=== PATIENT | male | born 1935 | race African-American/Black ===

== ENCOUNTER 2016-06-11 07:31 | Inpatient (IN) | payer MEDICARE ==
--- NOTE | ~2016-06-11 | DS ---
Discharge Summary [facility] [address] [place]. [address] NAME: VANESSA NUÑEZ : 36 STATUS : ADM IN PAT#: [id number] AGE: 80 ADM/REG DATE : 06/11/16 MR#: [id number] REPORT SERV DATE: 06/15/16 DICTATED BY: CARMEN BLACKWELL DATE: 06/14/16 REPORT STATUS : Draft TRANSCRIBED BY: STELLA DATE: 06/14/16 ADMISSION DATE: 06/11/2016 DISCHARGE DATE: ADDENDUM: After planning for the patient to be discharged home, the had a concern that the patient needed maximal assist to help. It is unclear to me as of why the patient became so deconditioned since he has been only here for two or three days to the point where he needs maximal assist. I suspect that he was not ambulating prior to hospitalization. Now, the is demanding that he go to a rehab facility, so we are canceling the discharge and having Physical Therapy evaluate the patient and potentially placing him in a facility. However, if the patient declines rehab facility, then he will be discharged home. Interestingly enough, the patient's did not express any concerns yesterday when I told the patient and his that he will be discharged home on Tuesday. JACK/STELLA Carmen Blackwell MD / [id number] CC: MD Tim Veloz M.D.
--- NOTE | ~2016-06-11 | HP ---
History And Physical [place] [id number] [facility] [place]. [address] NAME: VANESSA NUÑEZ : 36 STATUS : ADM IN [facility]#: [id number] AGE: 80 ADM/REG DATE : 06/11/16 MR#: [id number] REPORT SERV DATE: 06/11/16 DICTATED BY: MACRINA HENDRICKS DATE: 06/11/16 REPORT STATUS : Draft TRANSCRIBED BY: MODL DATE: 06/11/16 DATE OF ADMISSION: 06/11/2016 CHIEF COMPLAINT: Chills. HISTORY OF PRESENT ILLNESS: The patient is a very pleasant 80-year-old male who was just in the hospital from 05/14/2016 to 05/20/2016 with what sounds like MSSA urinary tract infection and urinary retention requiring a Bird catheter for which he was discharged with plans to follow up with Dr. Nevarez. He did well for a bit and then on Tuesday, his noted that he was feeling poorly. He was seen in the Emergency Department at [facility] on 06/08/2016, at that time, his Bird catheter was changed and he was placed on some Bactrim for a presumed urinary tract infection. He went home. Over the last 36 hours, his reports he has had no urine output and he has had shaking chills. She did not measure his temperature. He really does not provide much of the history, she provides most of it. She did not take his temperature, but she felt like he was ill, he was weak, he actually fell in the shower yesterday. He did not suffer any injuries but he was so weak he could not get up off the shower floor and had to have a neighbor help him today. Finally she called the EMS when he was so weak, he could not stand. PAST MEDICAL HISTORY: 1. Recent MSSA urinary tract infection with urinary retention and a Bird catheter placement. 2. Klebsiella UTI diagnosed on June 08 with Bird catheter change. 3. Parkinson's. 4. Peripheral neuropathy. 5. Ataxia. 6. BPH. 7. Erectile dysfunction. Penile implant. 8. Hypertension. 9. Previous stroke. 10.Thyroid nodule. 11.Debility. PAST SURGICAL HISTORY: He has had a 1. Right inguinal hernia repair. 2. Penile implant. 3. Cholecystectomy. SOCIAL HISTORY: He does not use any drugs or alcohol or tobacco. He is . He uses a cane and a walker at home. ALLERGIES: NO KNOWN DRUG ALLERGIES. FAMILY HISTORY: Positive for possible depression. HOME MEDICATIONS: Reviewed and attached. History And Physical [address] [place]. [address] NAME: VANESSA NUÑEZ : 36 STATUS : ADM IN PAT#: [id number] AGE: 80 ADM/REG DATE : 06/11/16 MR#: [id number] REPORT SERV DATE: 06/11/16 DICTATED BY: MACRINA HENDRICKS DATE: 06/11/16 REPORT STATUS : Draft TRANSCRIBED BY: STELLA DATE: 06/11/16 REVIEW OF SYSTEMS: Full 10-point review of systems obtained. Pertinent positives already mentioned in the HPI. PHYSICAL EXAMINATION: VITAL SIGNS: Blood pressure upon my arrival was in the 80s over 40s, sats were 95%, temperature was 100.5, and pulse is 100. GENERAL: Ill-appearing male. HEENT: Normocephalic, atraumatic. He does have this chronic right-sided hyperpigmentation of his right eye which his states he has had since . His throat is clear. NECK: Supple. HEART: Tachycardic. LUNGS: Grossly clear but diminished at the bases. ABDOMEN: Soft, nontender, nondistended. EXTREMITIES: Warm and dry. Skin is intact. Pulses are 2+ at the feet. NEUROLOGIC: He is alert. He is oriented to person, place, and time. Mood and affect are appropriate. He moves all four extremities appropriately. LAB AND X-RAY STUDIES: Culture, urine culture from 06/09/2016 shows Klebsiella which is israel- sensitive. 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 Comprehensive metabolic panel: Sodium 138, potassium 3.7, chloride 103, CO2 of 22, BUN and creatinine 37 and 1.53. Glucose 100. LFTs are normal other than an AST which is 67. Lipase is normal. Troponin is 0.02. Lactate is 1.9. Chest x-ray is negative. Flu swab is negative. CBC: White count is 22, H and H 11 and 34, and platelets are 338. Urinalysis shows 140 whites, 39 red cells, many bacteria, large leukocyte esterase. ASSESSMENT/PLAN: 1. Sepsis secondary to urinary tract infection, exacerbated by urinary obstruction. Apparently his Bird catheter was not quite in the bladder, this was advanced, and he had drainage of about 600 mL of urine and then he started to have blood from his bladder. He has evidence also of mild acute kidney injury. I would like to treat his ongoing sepsis urinary tract infection aggressively. I have given him a 2 L bolus here in the ER. I am going to watch him down here to see if I can get his pressure above 100 with just simple fluids. I will place him empirically on Levaquin and vancomycin. I have pancultured him. We will do another lactic acid about 2 hours. We will check a procalcitonin. We will treat his sepsis aggressively. Should he stabilize and be appropriate for a tele bed, we will move him to a tele bed, otherwise he is awaiting an IMCU bed. 2. Acute kidney injury likely secondary to urinary retention. I have placed a 3-way Bird and we are irrigating his bladder currently and appears to be draining nicely. Hopefully with resolution of this obstruction, his kidney function will improve and hopefully also with the treatment of his urinary tract infection, his kidney function will improve. He is also at risk for ATN given the fact that he has been hypotensive History And Physical [address] [address] NAME: VANESSA NUÑEZ : 36 STATUS : ADM IN [facility]#: [id number] AGE: 80 ADM/REG DATE : 06/11/16 MR#: [id number] REPORT SERV DATE: 06/11/16 DICTATED BY: MACRINA HENDRICKS DATE: 06/11/16 REPORT STATUS : Draft TRANSCRIBED BY: MODL DATE: 06/11/16 in the ER. We are aggressively resuscitating him and correct any underlying cause of his sepsis. 3. Urinary retention now with chronic indwelling Bird. He will need to follow up with Urology as an outpatient. Please see #1 and 2 for details. 4. History of Parkinson's. Continue Sinemet. 5. Peripheral neuropathy. 6. History of ataxia. Will need a walker or cane. We will place him on fall risk precautions. 7. Thyroid nodule aspirated last hospital stay. Unable to pull up the path report in the ER. This will need to be followed up by the inpatient hospitalist tomorrow on rounds. 8. Deep venous thrombosis prophylaxis; given the amount of hematuria he is having in the ER, would hold off today but could likely restart tomorrow if his urine clears. 9. Disposition pending above aforementioned plan and workup. DANII/STELLA Macrina Hendricks M.D. / [id number] CC: Linda Parker M.D. Marty Scheinberg, M.D.
--- NOTE | ~2016-06-11 | DS ---
Discharge Summary [facility] [address] [place]. [address] NAME: VANESSA NUÑEZ : 37 STATUS : ADM IN [facility]#: [id number] AGE: 80 ADM/REG DATE : 06/11/16 MR#: [id number] REPORT SERV DATE: 06/15/16 DICTATED BY: CARMEN DE LOS SANTOS DATE: 06/14/16 REPORT STATUS : Draft TRANSCRIBED BY: MODL DATE: 06/14/16 ADMISSION DATE: 06/11/2016 DISCHARGE DATE: 06/14/2016 REASON FOR ADMISSION: Sepsis secondary to urinary tract infection and urinary retention, and management of urinary retention. HISTORY OF PRESENT ILLNESS: Please refer Dr. Cristela Hendricks' history and physical dated 06/11/2016 for complete details regarding the patient admission. In brief, the patient was admitted to the Hospitalist Service for management of his sepsis secondary to UTI exacerbated by urinary obstruction. HOSPITAL COURSE: The patient had an uncomplicated hospital course. He presented with a white blood cell count of 22,000. A Bird catheter was placed in the ER and had about 600 mL of urinary retention. He was mildly hypotensive in the ER, and was given 2 L of bolus with his blood pressure rising as expected. He also had acute kidney injury secondary to urinary retention and infection, which is now resolved by the day of discharge. He was started on broad-spectrum antibiotics. Urine culture came back positive for Klebsiella pneumonia that was israel susceptible. He was then switched over to Ceftin on the day of discharge. The patient has reached maximal hospitalization. His acute kidney injury has resolved. His white blood cell count has trended towards normal. He will be discharged home with the Bird catheter to follow up with Dr. Nevarez as scheduled to do a voiding trial. DISCHARGE DIAGNOSES: Sepsis secondary to Klebsiella pneumoniae urinary tract infection present on admission; acute kidney injury secondary to urinary retention and infection, now resolved; urinary obstruction, now resolved with Bird catheter in place; Parkinson's, stable on Sinemet; peripheral neuropathy; benign thyroid nodule; and constipation. PROCEDURES: Include CT scan of the abdomen and pelvis. DISCHARGE MEDICATIONS: Include alfuzosin 10 mg at bedtime, Sinemet 25/100 mg one tablet four times a day, Avodart 0.5 mg daily, Flonase daily, Exelon Patch daily, sertraline 25 mg daily, Flomax 0.4 mg daily, carvedilol 3.125 mg twice a day, aspirin 81 mg daily, Ultram p.r.n., and Ceftin 500 mg twice a day for five more days. JACK/STELLA Carmen De Los Santos MD / [id number] CC: Discharge Summary [address] [address] NAME: VANESSA NUÑEZ : 36 STATUS : ADM IN PAT#: [id number] AGE: 80 ADM/REG DATE : 06/11/16 MR#: [id number] REPORT SERV DATE: 06/15/16 DICTATED BY: CARMEN DE LOS SANTOS DATE: 06/14/16 REPORT STATUS : Draft TRANSCRIBED BY: MODL DATE: 06/14/16 MD Tim Veloz M.D. Marty Scheinberg, M.D.
--- NOTE | ~2016-06-11 | DS ---
Discharge Summary [facility] [address] [facility] [place]. [address] NAME: VANESSA NUÑEZ : 37 STATUS : DIS IN PAT#: [id number] AGE: 80 ADM/REG DATE : 06/11/16 MR#: [id number] REPORT SERV DATE: 06/17/16 DICTATED BY: ANNA MARIE LAWRENCE DATE: 06/16/16 REPORT STATUS : Draft TRANSCRIBED BY: MODL DATE: 06/16/16 ADMISSION DATE: 06/11/2016 DISCHARGE DATE: 06/16/2016 DISCHARGE DIAGNOSES: 1. Urinary tract infection and sepsis, improved. 2. Urinary tract infection with Klebsiella. The patient will finish Levaquin, two more days. 3. Misplaced Bird catheter, corrected. 4. Acute kidney injury, completely resolved. HISTORY OF PRESENT ILLNESS: This is a 80-year-old -Finnish male patient, who had a recent hospitalization here about a month ago. He had to come back to the hospital after his Bird catheter was changed prior to this admission from the emergency room and developed a chill and fever. Please see dictated H and P. HOSPITAL COURSE: The patient was admitted to the hospital with UTI and sepsis, was treated with empirical antibiotics and improved. His urine culture came back positive with Klebsiella, which was pansensitive to all the antibiotics that he was treated. Finally, his antibiotic was narrowed down to Levaquin once a day. Along with this urinary tract infection, he was showing acute kidney injury, which is completely resolved after the treatment. Overall, he had improvement significantly. Initially, his discharge was made to home, but later, his physical strength was not strong enough to go back home. He just finished rehab from [facility]. [facility] declined his readmission on this admission. Medically, he is stable enough to be discharged from the hospital at this point, waiting for the rehab arrangement. DISCHARGE MEDICATIONS: 1. Uroxatral 10 mg once at bedtime. 2. Continue Sinemet 25/100 mg four times a day. 3. Coreg 3.125 mg twice a day. 4. Avodart 0.5 mg once a day. 5. Flonase once a day. 6. Levaquin 750 mg once a day for two more days. 7. Exelon 9.5 mg once a day. 8. Zoloft 25 mg once a day. 9. Flomax 0.4 mg once a day. 10.Vitamin D once a day. 11.Aspirin 81 mg once a day. 12.Ultram 50 mg every 8 hours as needed. He still has Bird catheter drain. The patient is supposed to see Dr. Nevarez as an outpatient. We are going to re-arrange his outpatient appointment with him. Discharge Summary [address] [place]. [address] NAME: VANESSA NUÑEZ : 36 STATUS : DIS IN PAT#: [id number] AGE: 80 ADM/REG DATE : 06/11/16 MR#: [id number] REPORT SERV DATE: 06/17/16 DICTATED BY: ANNA MARIE LAWRENCE DATE: 06/16/16 REPORT STATUS : Draft TRANSCRIBED BY: STELLA DATE: 06/16/16 The patient will be discharged to rehab once it is arranged, but medically stable enough to be discharged from a few days ago. I had to spend more than 30 minutes in coordination of discharge disposition and plan. IRWIN/STELLA Anna Marie Lawrence M.D. / [id number] CC: Linda Francois M.D.
[~2016-06-11 07:31] MED LIST: AGELESS MALE PO; AVODART PO; BACDS PO; CARDU4 PO; COREG3 PO; COREG6 PO; DIOVAN HCT PO; FLOMAX4 PO; FLONASE NAS; HALF81 PO; KLONO5 PO; L20 PO; METHOC750B PO; MIRALAXPKT PO; NORCO1 TA1 PO; SIN25 PO; SUPER BETA PROSTATE PO; UROXATRAL PO; VITAMIN D1000 UNI1 PO; ZOLOFT25 MG PO
[2016-06-11 07:58] LABS: HEMATOCRIT 33.6 % (40.0-51.0); HEMOGLOBIN 11.2 g/dL (13.6-17.8); MEAN CORPUS HGB CONC 33.3 g/dL (32.0-36.0); MEAN CORPUSCULAR HEMOGLOB 26.9 pg (26.0-34.0); MEAN CORPUSCULAR VOLUME 80.8 fL (80-100); MEAN PLATELET VOLUME 9.1 fL (9.2-13.0); PLATELET COUNT 338 10/3/uL (150-400); RBC DISTRIBUTION WIDTH 13.9 % (12.0-16.0); RED CELL COUNT 4.16 10/6/uL (4.7-6.1)
[2016-06-11 08:01] LABS: ER CBC TAT 0 Hrs 11 Mins; MANUAL DIFF YES %; WHITE BLOOD CELLS 22.2 10/3/uL (4.5-10.5)
[2016-06-11] MEDS ORDERED: EXELON9.5T TOP (08:15)
[2016-06-11 08:16] LABS: A/G RATIO 0.7 (0.7-1.9); ALBUMIN 3.3 G/DL (3.5-5.0); ALKALINE PHOSPHATASE 95 U/L (45-117); BUN (BLOOD UREA NITROGEN) 37 MG/DL (6-23); CALCIUM, SERUM 9.5 MG/DL (8.5-10.4); CHLORIDE, SERUM 103 MMOL/L (96-112); CO2 (CARBON DIOXIDE) 22 MMOL/L (24-34); CPK 179 U/L (0-200); CREATININE 1.53 MG/DL (0.70-1.30); GFR AFRICAN AMERICAN 49 ML/MIN (>=60); GFR NON AFRICAN AMERICAN 43 ML/MIN (>=60); GLUCOSE, SERUM 100 MG/DL (60-99); POTASSIUM, SERUM 3.7 MMOL/L (3.5-5.3); SGOT(AST) 67 U/L (5-40); SGPT(ALT) 43 U/L (5-65); SODIUM, SERUM 138 MMOL/L (135-148); TOTAL BILIRUBIN 0.8 MG/DL (0-1.2); TOTAL PROTEIN 8.3 G/DL (6.0-8.5); TROPONIN I <0.02 NG/ML (<0.05)
[2016-06-11] MEDS ORDERED: ULTRAM50 PO (08:16)
[2016-06-11 08:18] LABS: LACTATE 1.9 MMOL/L (0.3-2.4)
[2016-06-11 08:38] LABS: INFLUENZA A SCREEN NEGATIVE (NEGATIVE); INFLUENZA B SCREEN NEGATIVE (NEGATIVE)
[2016-06-11 08:40] LABS: BAND NEUTROPHILS 16 %; EOSINOPHILS 3 %; EOSINOPHILS ABSOLUTE (CALC) 0.67 10/3/uL (0.0-0.53); ER DIFF TAT 0 Hrs 50 Mins; IMMATURE GRANS ABSOLUTE (CALC) 0.22 10/3/uL (0.0-0.11); LYMPHOCYTES 4 %; LYMPHOCYTES ABSOLUTE (CALC) 0.89 10/3/uL (0.67-4.30); METAMYELOCYTES 1 %; MONOCYTES 3 %; MONOCYTES ABSOLUTE (CALC) 0.67 10/3/uL (0.21-1.20); NEUTROPHILS ABSOLUTE (CALC) 19.76 10/3/uL (2.02-8.40); PLATELET ESTIMATE ADQ (ADEQUATE); RBC MORPHOLOGY NORM (NORMAL); SEGMENTED NEUTROPHIL (0) 73 %; TOTAL NUCLEATED CELLS 100
[2016-06-11 08:42] LABS: ASCORBIC ACID (UR NOT ORDER) NEG (NEG); BILIRUBIN, URINE NEGATIVE (NEG); ER URINALYSIS TAT 0 Hrs 26 Mins; KETONE, URINE NEGATIVE (NEG); LEUKOCYTE ESTERASE(NOT OR LARGE (NEG); NITRITE (URINE) NEG (NEG); WBC (NOT ORDERED) (RFLEX) 140 (0-5)
[2016-06-12 07:19] LABS: CHLORIDE, SERUM 105 MMOL/L (96-112); CO2 (CARBON DIOXIDE) 22 MMOL/L (24-34); GLUCOSE, SERUM 87 MG/DL (60-99); POTASSIUM, SERUM 3.8 MMOL/L (3.5-5.3); SODIUM, SERUM 139 MMOL/L (135-148)
[2016-06-12 07:20] LABS: BUN (BLOOD UREA NITROGEN) 24 MG/DL (6-23); CALCIUM, SERUM 8.3 MG/DL (8.5-10.4); CREATININE 0.94 MG/DL (0.70-1.30); GFR AFRICAN AMERICAN 89 ML/MIN (>=60); GFR NON AFRICAN AMERICAN 77 ML/MIN (>=60)
[2016-06-12 07:24] LABS: BASOPHILS 0.1 %; BASOPHILS ABSOLUTE 0.01 10/3/uL (0.0-0.16); EOSINOPHILS 5.2 %; EOSINOPHILS ABSOLUTE 0.66 10/3/uL (0.0-0.53); HEMOGLOBIN 9.3 g/dL (13.6-17.8); IMMATURE GRANULOCYTES 0.9 %; IMMATURE GRANULOCYTES ABSOLUTE 0.12 10/3/uL (0.0-0.11); LYMPHOCYTES 9.4 %; LYMPHOCYTES ABSOLUTE 1.19 10/3/uL (0.67-4.30); MEAN CORPUS HGB CONC 33.5 g/dL (32.0-36.0); MEAN CORPUSCULAR HEMOGLOB 27.2 pg (26.0-34.0); MEAN CORPUSCULAR VOLUME 81.3 fL (80-100); MONOCYTES ABSOLUTE 0.64 10/3/uL (0.21-1.20); NEUTROPHILS 79.4 %; NEUTROPHILS ABSOLUTE 10.08 10/3/uL (2.02-8.40); PLATELET COUNT 301 10/3/uL (150-400); RBC DISTRIBUTION WIDTH 14.2 % (12.0-16.0); RED CELL COUNT 3.42 10/6/uL (4.7-6.1)
[2016-06-12 07:27] LABS: HEMATOCRIT 27.8 % (40.0-51.0); MANUAL DIFF NO %; WHITE BLOOD CELLS 12.7 10/3/uL (4.5-10.5)
[2016-06-14] MEDS ORDERED: CEFT5 PO (10:44)
[2016-06-14 21:10] LABS: BUN (BLOOD UREA NITROGEN) 11 MG/DL (6-23); CALCIUM, SERUM 8.7 MG/DL (8.5-10.4); CHLORIDE, SERUM 102 MMOL/L (96-112); CO2 (CARBON DIOXIDE) 24 MMOL/L (24-34); CREATININE 0.73 MG/DL (0.70-1.30); GFR AFRICAN AMERICAN 102 ML/MIN (>=60); GFR NON AFRICAN AMERICAN 88 ML/MIN (>=60); GLUCOSE, SERUM 137 MG/DL (60-99); POTASSIUM, SERUM 3.6 MMOL/L (3.5-5.3); SODIUM, SERUM 137 MMOL/L (135-148); TROPONIN I <0.02 NG/ML (<0.05)
[2016-06-16] MEDS ORDERED: LEVAQUIN750 MG PO (11:15)
[2016-06-16] MEDS ORDERED: MIRALAX POWDER1 PKT PO (11:15)
[2016-07-09] MEDS ORDERED: FLORASTOR250 MG PO (15:15)
[2016-07-09] MEDS ORDERED: ZOLOFT25 MG PO (15:15)
[2016-07-09] MEDS ORDERED: DSS PO (15:16)
[2016-07-09] MEDS ORDERED: FLOMAX4 PO (15:16)
[2016-07-09] MEDS ORDERED: ACET500CAP PO (15:16)
[2016-07-09] MEDS ORDERED: MELA3 PO (15:16)
[2016-07-09] MEDS ORDERED: UROXATRAL PO (15:17)
[2016-07-09] MEDS ORDERED: COREG3 PO (15:17)
[2016-07-09] MEDS ORDERED: VITAMIN D31000 UNIT PO (15:17)
[2016-07-09] MEDS ORDERED: HYDRALAZINE100 MG PO (15:18)
[2016-07-09] MEDS ORDERED: SIN25 PO (15:18)
[2016-07-09] MEDS ORDERED: AVODART PO (15:18)
[2016-07-09] MEDS ORDERED: POLY-IRON 150MG PO (15:19)
[2016-07-09] MEDS ORDERED: HALF81 PO (15:19)
[2016-07-09] MEDS ORDERED: IMDUR30 PO (15:19)
[2016-07-09] MEDS ORDERED: LOTREL1 CA4 PO (15:19)
[2016-07-16] MEDS ORDERED: CEFADROXIL1 GM PO (12:03)
[2016-07-16] MEDS ORDERED: ATV1 PO (12:03)
[2016-07-21] MEDS ORDERED: L20 PO (12:05)
[2016-07-21] MEDS ORDERED: PRAVACHOL80 MG PO (12:06)
[2016-07-21] MEDS ORDERED: ZETIA PO (12:06)
[2016-07-21] MEDS ORDERED: VITE PO (12:07)
[2016-07-21] MEDS ORDERED: SPIRIVA (12:07)
[2016-07-21] MEDS ORDERED: PULRESP.5 INH (12:08)
[2016-07-21] MEDS ORDERED: BROVANA15 MCG INH (12:08)
[2016-07-21] MEDS ORDERED: ALBUTEROL (12:11)
[2016-07-21] MEDS ORDERED: EXELON9.5T TOP (13:12)
[2016-07-21] MEDS ORDERED: ATV.5 PO (13:13)
[2016-07-21] MEDS ORDERED: UROXATRAL PO (13:14)
[2016-07-21] MEDS ORDERED: DURICEF PO (13:15)
[2016-07-21] MEDS ORDERED: SIN25 PO (13:15)
[2016-07-21] MEDS ORDERED: COREG3 PO (13:15)
[2016-07-21] MEDS ORDERED: FLOMAX4 PO (13:16)
[2016-07-21] MEDS ORDERED: ATIVAN2 MG PO (13:16)
[2016-08-14] MEDS ORDERED: LOVENOX40 SC (15:59)
[2016-08-14] MEDS ORDERED: UROXATRAL PO (16:00)
[2016-08-14] MEDS ORDERED: NORV5 PO (16:00)
[2016-08-14] MEDS ORDERED: XANAX1 MG PO ×2 (16:00→16:05)
[2016-08-14] MEDS ORDERED: EXELON9.5T TOP (16:01)
[2016-08-14] MEDS ORDERED: ASAB PO (16:01)
[2016-08-14] MEDS ORDERED: FLORASTOR250 MG PO (16:01)
[2016-08-14] MEDS ORDERED: COREG6 PO (16:02)
[2016-08-14] MEDS ORDERED: VITAMIN B-122500 MCG PO (16:02)
[2016-08-14] MEDS ORDERED: FLOMAX4 PO (16:02)
[2016-08-14] MEDS ORDERED: MULTIVIT/MIN PO (16:02)
[2016-08-14] MEDS ORDERED: DSS PO (16:03)
[2016-08-14] MEDS ORDERED: VITAMIN D31000 UNIT PO (16:03)
[2016-08-14] MEDS ORDERED: FOLIC PO (16:03)
[2016-08-14] MEDS ORDERED: SINCR25100 PO (16:03)
[2016-08-14] MEDS ORDERED: CEFAZ1 IV (16:04)
[2016-08-14] MEDS ORDERED: LIPITOR20 PO (16:04)
[2016-08-14] MEDS ORDERED: T PO (16:05)
[2016-08-14] MEDS ORDERED: ACETSUP650 PR (16:05)
[2016-08-14] MEDS ORDERED: MELA3 PO (16:06)
[2016-08-14] MEDS ORDERED: ZOFRAN4 PO (16:06)
[2016-08-14] MEDS ORDERED: SENTAB PO (16:07)
[2016-08-14] MEDS ORDERED: DUONEB INH (16:07)
[2016-08-14] MEDS ORDERED: HYDROCORTISONE30 G1 TOP (16:07)
[2016-12-29] MEDS ORDERED: SEROQUEL300 MG PO (09:54)
[2016-12-29] MEDS ORDERED: EXELON9.5T TOP (09:57)
[2016-12-29] MEDS ORDERED: COZ25 PO (10:01)
[2016-12-29] MEDS ORDERED: FERROUS SULF325 M1 PO (10:01)
[2016-12-29] MEDS ORDERED: FLORASTOR250 MG PO (10:02)
[2016-12-29] MEDS ORDERED: MIRALAX POWDER1 PKT PO (10:03)
[2016-12-29] MEDS ORDERED: XANAX XR0.5 MG PO (10:04)
== END 2016-06-16 15:57 | DRG 698 ==
LOC: ER 07:31 → ER/OF 10:44 → 7NO 12:25
PROVIDERS: Internal Medicine; Nurse Practitioner; Nurse Practitioner Family
PROC: 0T9B70Z Drainage of Bladder with Drainage Device, Via Natural or Artificial Opening (ICD-10-PCS; principal; 2016-06-11)
DX: T83.511A Infection and inflammatory reaction due to indwelling urethral catheter, initial encounter (principal); A41.9 Sepsis, unspecified organism; N17.9 Acute kidney failure, unspecified; G20 Parkinson's disease; N39.0 Urinary tract infection, site not specified; G62.9 Polyneuropathy, unspecified; B96.1 Klebsiella pneumoniae [K. pneumoniae] as the cause of diseases classified elsewhere; R33.9 Retention of urine, unspecified; I10 Essential (primary) hypertension; F02.80 Dementia in other diseases classified elsewhere, unspecified severity, without behavioral disturbance, psychotic disturbance, mood disturbance, and anxiety; Z79.82 Long term (current) use of aspirin; Z79.899 Other long term (current) drug therapy
CPT/HCPCS: 71010; 74176; 80048; 80053; 81001; 82550; 82962; 83605; 83690; 83735; 83880; 84484; 85025; 87040; 87077; 87086; 87186; 87804; 93005; 96374; 96375; 97116-GP; 97162-GP; 99284; 99291; A9270-GY; G8978-CL-GP; G8979-CJ-GP; J0360; J1956; J2405; J3370

== ENCOUNTER 2016-08-02 19:19 | Inpatient (IN) | payer MEDICARE ==
--- NOTE | ~2016-08-02 | CN ---
Consultation Report [facility] [address] [place]. [address] NAME: VANESSA SPEARS : 36 STATUS : ADM IN [facility]#: [id number] AGE: 80 ADM/REG DATE : 08/02/16 MR#: [id number] REPORT SERV DATE: 08/03/16 DICTATED BY: SYLVESTER SUNSHINE DATE: 08/03/16 REPORT STATUS : Draft TRANSCRIBED BY: MODL DATE: 08/03/16 DATE OF CONSULTATION: 08/03/2016 REASON FOR CONSULTATION: Urinary retention. HISTORY OF PRESENT ILLNESS: Mr. Spears is a 80-year-old black gentleman, who has been a patient of mine for many years. Originally, he was seen for erectile dysfunction years ago and had an inflatable penile prosthesis implanted. The implant remains in place and has had no evidence of infection to this point. He, of course, is no longer sexually active being elderly, but was admitted with urinary retention and probable urosepsis with a white count of approximately 27,000. Urine culture is growing a gram-positive coccus. He is currently on cefepime and vancomycin. His white count has improved from 27,000 to 20,000 today, and he is afebrile. His mental status has changed for the worst markedly. He is now very lethargic and hard to arouse. His catheter apparently had not been in proper position at admission and the nurse has replaced a coude Bird, which appears now to be in better position and is draining a clear yellow urine. The bladder is not distended. PHYSICAL EXAMINATION: The penis has an indwelling Bird catheter with some mild ventral urethral erosion. The catheter is draining appropriately. The corporal cylinders are in good position. There is no evidence of erosion or infection of the penis. The scrotum is normal without swelling. The penile prosthetic pump is palpable subcutaneously on the right side. There is no evidence of infection of the pump. The perineum is normal without swelling. IMPRESSION: Urinary tract infection, probable urosepsis. Mental status change, questionable etiology (the patient had a couple of falls reportedly and was seen at [facility] versus urosepsis). PLAN: Long discussion with the patient's and his daughter, Sofy, by phone. I was questioned about whether or not I thought a suprapubic tube might be a benefit. However, in this situation, I explained to both that "a tube is a tube," and I do not think that a suprapubic tube would offer us any long-term benefit over the urethral Bird, however, and we may have to convert to an SP tube at some point. My biggest concern is that this is a case of overwhelming urosepsis, but I did reassure to both and daughter that all aggressive measures were being followed with hydration and antibiotic therapy. Otherwise, there is really nothing else to offer. The patient certainly is not a candidate for a TURP, and removing the catheter would not likely either allow us to monitor his urine output, which is important, or leave him with spontaneous voiding, which I doubt he would be able to do. We will follow with you. /STELLA Sylvester Consultation Report [address] [place]. [address] NAME: VANESSA SPEARS : 36 STATUS : ADM IN PAT#: [id number] AGE: 80 ADM/REG DATE : 08/02/16 MR#: [id number] REPORT SERV DATE: 08/03/16 DICTATED BY: SYLVESTER SUNSHINE DATE: 08/03/16 REPORT STATUS : Draft TRANSCRIBED BY: STELLA DATE: 08/03/16 Linda Sunshine / [id number] CC: Linda Javier M.D.
--- NOTE | ~2016-08-02 | CN ---
Consultation Report [facility] [address] [place]. [address] NAME: VANESSA NUÑEZ : 37 STATUS : ADM IN PAT#: [id number] AGE: 80 ADM/REG DATE : 08/02/16 MR#: [id number] REPORT SERV DATE: 08/09/16 DICTATED BY: KAVITHA SPRING DATE: 08/09/16 REPORT STATUS : Draft TRANSCRIBED BY: MODL DATE: 08/09/16 NEUROLOGY CONSULTATION DATE OF CONSULTATION: 08/06/2016 REASON FOR CONSULTATION: Acute encephalopathy. HOSPITALIST: Dr. Rafael Elizondo. NEUROLOGIST: Dr. Eliu Montague. HISTORY OF PRESENT ILLNESS: The patient is a 80-year-old male, who was admitted to the hospital through [facility]'s emergency department, this occurred on 08/02/2016. He was residing at [facility]. According to the family, the patient has had a rapid decline in his mental status since 05/2016. He has had multiple urinary tract infections since 05/2016. First, he had a Klebsiella infection and afterwards had urinary tract infections with MSSA. When the patient arrived in the emergency department on 08/02/2016, his initial white blood cell count was 26.9. He had fever and chills. He also had pyuria. He was started on vancomycin and cefepime. His mental status was poor at this time. Consequently, he was admitted for further evaluation and treatments. The patient has an underlying dementia. He sees Dr. Montague for this. He is on an Exelon patch and is receiving supportive care. His states that, she is no longer able to care for him because of his size and weight. According to the staff, the patient was very confused the first two days of his admission. However because he was on antibiotics and his urinary tract infection seemed to clear, the third and fourth day his mentation improved. By the sixth day, the patient received a fair amount of Xanax at night time and then the following day was obtunded. He had a CT scan, lab work and ABGs drawn, which all came back negative. It was unsure as to whether the patient was drowsy from his medication or possibly he had a seizure and was postictal. Consequently, Neurology was consulted. PAST MEDICAL HISTORY: Dementia, Parkinson's disease, stroke (right YAO territory stroke in 2014), hypertension, neuropathy, thyroid nodule, granulomatous lung disease, BPH, and ataxia. PAST SURGICAL HISTORY: Cholecystectomy, right inguinal hernia repair, and penile prosthesis. HOME MEDICATIONS: List consists of Tylenol p.r.n., DuoNeb inhaler solutions q.4 hours p.r.n., Uroxatral 10 mg daily, Xanax 0.5 mg q.6 hours p.r.n. for anxiety and Xanax 2 mg at bedtime, Norvasc 2.5 mg daily, Sinemet CR 25/100 mg q.i.d., Coreg 3.125 mg b.i.d., vitamin Consultation Report [address] [address] NAME: VANESSA NUÑEZ : 37 STATUS : ADM IN [facility]#: [id number] AGE: 80 ADM/REG DATE : 08/02/16 MR#: [id number] REPORT SERV DATE: 08/09/16 DICTATED BY: KAVITHA SPRING DATE: 08/09/16 REPORT STATUS : Draft TRANSCRIBED BY: STELLA DATE: 08/09/16 D3 1000 units daily, Colace 100 mg b.i.d., Lovenox 40 mg subcu at bedtime, folic acid 1 mg q.a.m., hydrocortisone cream 2.5% topically daily, melatonin 3 mg at bedtime, multivitamin daily, Macrobid 100 mg b.i.d., Zofran 4 mg q.4 hours p.r.n., Exelon 9.5 mg patch daily, Florastor 250 mg capsules two every a.m., Senokot tabs p.r.n., and Flomax 0.4 mg at bedtime. ALLERGIES: NONE. SOCIAL HISTORY: The patient is . He has two children. He did work as a supervisor machine setter. He does not smoke, drink, alcohol, or use illicits. FAMILY HISTORY: The patient's mother from an [place] in her 90s. His father worked on a farm and he was kicked in the head by the cow. He was in his 90s also when he . He has three brothers. His youngest brother from an [place]. REVIEW OF SYSTEMS: For pertinent positives, please see the HPI. PHYSICAL EXAMINATION: GENERAL: The patient is a 80-year-old male, who stands 6 feet 1 inch tall and weighs 197 pounds. VITAL SIGNS: He is afebrile. Heart rate 96, respiratory rate 16, O2 saturations on room air of 93%, blood pressure 129/65. NEURO: The patient is awake. He is alert. He is oriented to person, but not time, place, or situation. He will follow simple commands. He is confused and somewhat inappropriate at times. Pupils are 3 mm. PERRLA. Cranial nerves 2 through 12 are intact. Difficult to determine his peripheral vision because of his confusion. He has a slight facial droop to the left. He can move all extremities x4. Mttrao-oa-eayo, no ataxia, no pronator drift. Upper extremity strength, he is slightly weaker on the left than the right, 3/5 on the left and a 4/5 on the right. DTRs are 1+ bilaterally. No reported sensory deficits. Lower extremity strength is 4/5 on the right and a 3/5 on the left. DTRs are 1+ bilaterally. No reported sensory deficits. NECK: No carotid bruits, JVD. No thyromegaly. CHEST: Lung sounds relatively clear. CARDIAC: Regular rate and rhythm. LABORATORY DATA: CBC is normal. BMP is normal. Blood gases, mild respiratory alkalosis. Chest x-ray, no acute changes. CT of the brain, no acute changes. Urine culture is positive for MSSA. ASSESSMENT/PLAN: 1. Acute metabolic encephalopathy. Etiology unknown. It is most likely multifactorial in nature. a. Recurrent UTI since 05/2016, this could certainly negatively affect the patient's mentation. b. The patient's medications could affect his mentation, particularly his Consultation Report [address] [address] NAME: VANESSA NUÑEZ : 37 STATUS : ADM IN [facility]#: [id number] AGE: 80 ADM/REG DATE : 08/02/16 MR#: [id number] REPORT SERV DATE: 08/09/16 DICTATED BY: KAVITHA SPRING DATE: 08/09/16 REPORT STATUS : Draft TRANSCRIBED BY: MODL DATE: 08/09/16 Xanax. Consequently, his p.r.n. Xanax will be eliminated and he will take 1 mg at nighttime. c. The patient has had strokes in the past. His last stroke was most likely a right YAO territory stroke. He will be placed on some preventative measures such as aspirin and Lipitor. He will also undergo an MRI of the brain without gadolinium and an MRA of the head and neck along with echocardiogram. 2. Underlying dementia. The patient's Exelon will be continued. He will also receive supportive care. 3. Parkinson's disease. The patient is currently on Sinemet CR. His dosage will be changed to plain Sinemet 25/100 mg four times a day, (the CR absorption can be very unpredictable). Hopefully, this will give him more predictable dosing. PT/OT consultation along with case management consultation for rehabilitation. Thank you again for including us in consultation. We will follow with you. NATHAN/STELLA Kavitha Spring DNP, [facility] / [id number] CC: Rafael Elizondo M.D. Tim Spring M.D. Eliu Montague M.D.
--- NOTE | ~2016-08-02 | CN ---
Consultation Report [facility] [address] [place]. [address] NAME: VANESSA NUÑEZ : 37 STATUS : ADM IN [facility]#: [id number] AGE: 80 ADM/REG DATE : 08/02/16 MR#: [id number] REPORT SERV DATE: 08/04/16 DICTATED BY: ANN HUTCHINSON DATE: 08/04/16 REPORT STATUS : Draft TRANSCRIBED BY: MODL DATE: 08/04/16 INFECTIOUS DISEASE CONSULT DATE OF CONSULTATION: 08/04/2016 REASON FOR CONSULTATION: MSSA septicemia. HISTORY OF PRESENT ILLNESS: This is a 80-year-old man with a past medical history notable for urinary retention for which he has had a Bird catheter for the past seven weeks or so. He has been diagnosed with urinary tract infections this year beginning with a Klebsiella infection in June and then MSSA UTI in early July. The patient has been at [facility]. He was brought to the emergency department at [facility] and admitted on 08/02/2016 with acute onset of fevers and severe shaking chills. The patient was found to have a white blood cell count of 26.9 and pyuria. After blood and urine cultures were obtained, he was started on antibiotics with vancomycin and cefepime. His white blood cell count has normalized. Both sets of blood cultures along with his urine culture have returned growing MSSA. The patient has been followed by Dr. Nevarez who does not really feel he can void adequately without his Bird catheter. Apparently according to the daughter, he did have a trial during this period without the Bird, which he failed. 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 No other hardware in his body. PAST MEDICAL HISTORY: Notable for some dementia and Parkinson disease. He also has had a stroke in the past. He has hypertension, history of cholecystectomy, and right inguinal hernia repair along with a penile implant. ALLERGIES: NO KNOWN DRUG ALLERGIES. PRESENT MEDICATIONS: Include Ancef to which the patient was changed today. He is also on Uroxatral, Xanax, Norvasc, Sinemet, Coreg, vitamin D, Colace, Lovenox, folic acid, multivitamin, Exelon, Florastor, and Flomax. SOCIAL HISTORY: The patient is . His and daughter are here in the room with him. Nonsmoker and nondrinker. FAMILY HISTORY: Notable for diabetes. REVIEW OF SYSTEMS: He has had some dementia for a while, but the daughter states that his dementia symptoms have worsened markedly over the past couple of months with these admissions and infections. His chief complaint is constipation. Denies any chest pain. PHYSICAL EXAMINATION: VITAL SIGNS: This is an 89 kg man. He is afebrile, maximum temperature in the last 24 Consultation Report [address] [place]. [address] NAME: VANESSA NUÑEZ : 37 STATUS : ADM IN [facility]#: [id number] AGE: 80 ADM/REG DATE : 08/02/16 MR#: [id number] REPORT SERV DATE: 08/04/16 DICTATED BY: ANN HUTCHINSON DATE: 08/04/16 REPORT STATUS : Draft TRANSCRIBED BY: STELLA DATE: 08/04/16 hours 99.8; blood pressure 155/76; pulse 87, it was as high as 126 on admission; and respiratory rate 16, it was as high as 22. GENERAL: He is alert. He is in no acute distress. He perseverates about needing something for his bowels. He was not fully oriented. HEAD AND NECK: Generally unremarkable. Neck is supple. LUNGS: Clear to auscultation anteriorly. CARDIAC: Regular rate and rhythm without murmur, gallop, or rub. ABDOMEN: Soft and nontender. : Deferred. Dr. Nevarez reviewed. EXTREMITIES: Show a peripheral IV without phlebitis. He has no significant edema. SKIN: Without rash. LABORATORY STUDIES: White blood cell count 8.8 today, hemoglobin 9.7, and platelets 270. Creatinine 0.68. Liver function tests normal. Blood and urine cultures as mentioned. Admission urinalysis showed large leukocyte esterase. The patient had an ultrasound of his bladder and kidneys on 08/03/2016, which showed benign renal cysts, some debris in the bladder, and at that time, malposition of the Bird catheter which was corrected. CT scan of the brain without IV contrast just showed some atrophy and chronic white matter changes. Chest x-ray negative. IMPRESSION: Methicillin-sensitive Staphylococcus aureus sepsis secondary to catheter- associated urinary tract infection. He appears to be responding to the antibiotics and his white blood cell count has normalized and sepsis parameters have improved. PLAN: 1. We will repeat blood cultures now. 2. I will plan two weeks of Ancef from the time of the repeat blood cultures. 3. He will need a PICC line prior to transfer back to [facility]. LAKHWINDER/STELLA Ann Hutchinson M.D. / [id number] CC: Linda Javier M.D. Marty Scheinberg, M.D.
--- NOTE | ~2016-08-02 | IDS ---
Interim Discharge Summary [facility] [address] [place]. [address] NAME: VANESSA NUÑEZ : 37 STATUS : ADM IN PAT#: [id number] AGE: 80 ADM/REG DATE : 08/02/16 MR#: [id number] REPORT SERV DATE: 08/09/16 DICTATED BY: JOSEPH IRENE DATE: 08/09/16 REPORT STATUS : Draft TRANSCRIBED BY: MODL DATE: 08/09/16 ADMISSION DATE: 08/02/2016 DISCHARGE DATE: CURRENT HOSPITAL DIAGNOSES: 1. Urinary tract infection. 2. Metabolic encephalopathy felt secondary to urinary tract infection. 3. History of Parkinson's. 4. History of dementia. 5. Hypertension. 6. Remote cerebrovascular accident. CONSULTATIONS: Urology, Sylvester Nevarez M.D., Infectious Disease, Edgar Hutchinson M.D., Neurology, Melvin Larsen MD. PROCEDURES: 1. EEG done on 08/09/2016, showing mildly abnormal, mild generalized slowing. No focal abnormalities, seizure activity, or discharge. Clinical correlation is recommended. 2. CT scan of the head x2; one on 08/03/2016, showing no acute intracranial abnormality, atrophy, chronic microvascular white matter ischemic changes. Repeat CT of the brain on 08/08/2016, showing no acute intracranial abnormality, severe chronic ischemic white matter demyelination, no change since 08/03/2016. 3. MRI, MRA of the brain pending. 4. Renal ultrasound done on 08/03/2016, showing benign cysts, debris in the bladder may be related to hematuria or infection, malposition of the Bird catheter, catheter needing repeat placement. CURRENT PHYSICAL FINDINGS AND HISTORY OF PRESENT ILLNESS: Please see dictated H and P by Dr. Raphael. In brief, the patient is a 80-year-old male with above medical history, presented with the following, with the complaint of UTI and confusion, and history of Parkinson disease, remote CVA, and dementia. Vital signs at presentation: BP was 153/88; temperature was 97.8, T-max here has been 99.5; pulse rate has been in the 80s to 90s. LAB WORK: Initial BMP was unremarkable. Repeat electrolytes showed no major disturbances. Ammonia was checked on 08/08/2016, and was normal at 24, lactate was 2.8 on admission, but 0.9 the following day. Initial white count was 26,000, subsequent white counts were 28.8 and 7.7 on 08/08/2016, mild anemia in the 9.5 to 10.5 hemoglobin range. Flu screen was negative. Initial urinalysis was positive with large amount of blood, leukocyte esterase, and nitrites. Blood cultures done on 08/02/2016, 2 out of 2 were positive for MSSA, second culture on 08/04/2016, was negative. Urinary culture on 08/02/2016, grew out MSSA also. The patient was initially admitted for UTI, confusion, concern of sepsis with his elevated white count. He was placed on cefepime and vancomycin. Urology was consulted due to his history of frequent UTIs and penile prosthesis. Routine lab work was checked and followed. Home medications reviewed and ordered appropriately. Renal ultrasound was ordered. I saw the patient first on 08/03/2016. Repeat CBC was requested and IV fluids were decreased to 75. The catheter which was noted to be malposition was replaced with good return. He was Interim Discharge Summary [address] [address] NAME: VANESSA NUÑEZ : 37 STATUS : ADM IN PAT#: [id number] AGE: 80 ADM/REG DATE : 08/02/16 MR#: [id number] REPORT SERV DATE: 08/09/16 DICTATED BY: JOSEPH IRENE DATE: 08/09/16 REPORT STATUS : Draft TRANSCRIBED BY: STELLA DATE: 08/09/16 getting quite a bit of Lasix at the rehab center, 2 mg at night and p.r.n. dosing during the day. This was decreased secondary to his lethargy because his had stated he had several falls and had been taken to [facility] prior to admission here because he was drowsy and confused. Repeat CT scan was done to rule out subdural and that was normal. The following day, he was noted to have confusion, agitation all evening and non-sleeping, so his Xanax was increased back to 1 mg, because of his positive blood cultures with MSSA, ID was consulted. Serial lab work was followed. His vancomycin and Maxipime were changed to Ancef. ID evaluated him, agreed with the antibiotic choice and ordered repeat culture. He was also felt to need long-term antibiotics, so a PICC line was requested on 08/05/2016. He did require some p.r.n. hydralazine on the morning of 08/06/2016. I increased his Norvasc at that time and continued to follow his lab. He had actually been treated for several days at that point, and his sedation and confusion were clearing. He remained hypertensive, however, so further increases in his meds including his Coreg were increased and since he was tolerating p.o., his IV fluids were decreased. His only other complaint was constipation. After the first several days in the hospital, he actually was able to be unrestrained and unmonitored. His mittens were off. He was still pleasantly confused, but improving. On discussion with his here, he was not back to baseline. On the morning of 08/07/2016, the patient had an episode where he was very difficult to arouse. His medications here were reviewed. He had received some Ativan at approximate 8 hours prior as well as some melatonin. His sedatives were withheld, but repeat CT scan was done which was negative. Chest x-ray was done, showed no other infectious source or aspiration. He after approximately the first hour or 2 in the morning, he was awake and able to return to his previous baseline. He had another briefer episode on the afternoon and ammonia level ABG and other labs were checked and normal, and for the remainder of the day into the evening, he was back to his previous baseline of mildly confused. His Xanax was withheld on that evening. He then became quite agitated on the evening of 08/08/2016, and did require alprazolam and Geodon. When I saw him the morning of 08/09/2016, he was not overly obtunded. He seemed to be returning back to his previous baseline of pleasant confusion, but given the above events, Neurology was consulted. Currently, he has an MRI, MRA, and echocardiogram pending. Case management PT are following. Eventual plan [facility] he is not requiring antipsychotics. Further evaluation is currently pending. AMARJIT/STELLA Joseph Irene M.D. / [id number] CC: Linda Javier M.D.
--- NOTE | ~2016-08-02 | DS ---
Discharge Summary [facility] [address] [place]. [address] NAME: VANESSA SPEARS : 37 STATUS : DIS IN PAT#: [id number] AGE: 81 ADM/REG DATE : 08/02/16 MR#: [id number] REPORT SERV DATE: 08/20/16 DICTATED BY: DAVID BOWENS DATE: 08/19/16 REPORT STATUS : Draft TRANSCRIBED BY: MODL DATE: 08/19/16 ADMISSION DATE: 08/02/2016 DISCHARGE DATE: 08/12/2016 DISCHARGE DIAGNOSES: 1. Urinary tract infection with completion of Ancef scheduled on 08/18. 2. Methicillin-susceptible Staphylococcus aureus bacteremia present on arrival. 3. Metabolic encephalopathy with Parkinson's disease and dementia, cerebrovascular accident history. CONSULTATIONS: Urology, Dr. Nevarez; ID, Dr. Hutchinson; and Neurology Dr. Larsen. HOSPITAL COURSE: Please see interim summary for complete procedure details of hospital course and lab work. Briefly, Mr. Spears is an elderly male who initially presented with sepsis, UTI type symptoms but additionally had metabolic encephalopathy prompting ID, urology, and neurology consultations including multiple CTs, MRI, MRA, renal ultrasounds, EEGs. Symptoms overall presumptive secondary to UTI and to decompensation of the patient's dementia, Parkinson's, and CVA history. On discussion with family member on phone on day of discharge, daughter over 50 minutes, it appeared that the patient has had multiple bouts of episodes of decompensation with UTIs and essential declining from his baseline and decreased activity remembering and higher functioning status. It is recommended that patient be followed up with Neuropsych as an outpatient. Will be discharged to longterm facility at this time due to requirements of care, is to complete antibiotic course on 08/18 with Ancef for MSSA. The patient did have medication adjustments for mild agitation, but as infection continued to improve, these medications were minimally required. DISCHARGE MAR: 1. Alfuzosin 10 mg one tab p.o. every morning. 2. Xanax 1 mg at bedtime for anxiety. 3. Amlodipine 2.5 mg one tab p.o. at morning. 4. Aspirin 81 mg one tab p.o. daily. 5. Lipitor 20 mg one tab p.o. at bedtime. 6. Sinemet 1 tab p.o. q.4 hours while awake. 7. Coreg 6.25 mg one tab p.o. b.i.d. with holding for heart rate less than 60, SBP less than 105. 8. Ancef 2 g IV q.8 hours until 08/18. 9. B12, 1000 mcg p.o. daily. 10.Vitamin D3, 1000 units p.o. every morning. 11.Colace 100 mg one tab p.o. b.i.d. scheduled for constipation. 12.The patient was on home Lovenox 40 mg subcu at bedtime for DVT prophylaxis. 13.Daily folic acid. 14.Melatonin p.r.n. 3 mg at bedtime as needed for insomnia. 15.Multivitamin 1 tab p.o. every morning. 16.Nystatin to groin b.i.d. 17.Seroquel 12.5 mg one tab p.o. at bedtime. 18.Exelon 7.5 mg one tab p.o. topical every morning. Discharge Summary [address] [address] NAME: VANESSA SPEARS : 37 STATUS : DIS IN PAT#: [id number] AGE: 81 ADM/REG DATE : 08/02/16 MR#: [id number] REPORT SERV DATE: 08/20/16 DICTATED BY: DAVID BOWENS DATE: 08/19/16 REPORT STATUS : Draft TRANSCRIBED BY: STELLA DATE: 08/19/16 19.Florastor 500 mg one tab p.o. every morning. 20.Flomax 0.5 mg one tab p.o. at bedtime. 21.Tylenol 650 mg one tab p.o. q.4 hours as needed for breakthrough pain. 22.Hydrocortisone 1 application topical p.r.n. itching. 23.Milk of magnesia p.o. [id number]. 24.Zofran 4 mg q.4 as needed for nausea or vomiting. 25.Senokot 2 tabs p.o. at bedtime as needed for constipation. 26.DuoNeb home doses for as needed for shortness of breath. Discharge planning, medication reconciliation greater than 30 minutes with education with the patient and family including at bedside and over the phone greater than 50-minute discussion. KERRY/STELLA David Bowens MD / [id number]
--- NOTE | ~2016-08-02 | EEG ---
Electroencephalogram [facility] [address] [place]. [address] NAME: VANESSA NUÑEZ : 37 STATUS : ADM IN PAT#: [id number] AGE: 80 ADM/REG DATE : 08/02/16 MR#: [id number] REPORT SERV DATE: 08/09/16 DICTATED BY: DATE: REPORT STATUS : Draft TRANSCRIBED BY: MODL DATE: 08/09/16 CLINICAL INDICATIONS: Encephalopathy. DESCRIPTION: This EEG was performed using 10/20 electrode placement system. During the EEG study, symmetric background activity was noted with predominant occipital rhythm of roughly 6 hertz. Photic stimulation was performed. No clear driving response was seen. The patient was noted to have generalized slowing throughout the EEG study with drowsiness, as well as stage I and II sleep with associated K-complexes and sleep spindles. Otherwise, the patient was noted to have no focal abnormalities, seizure activity, or seizure discharge during the EEG study. Hyperventilation was not performed secondary to the patient's underlying medical condition and mental status. INTERPRETATION: This EEG study obtained during awake, drowsy, as well as stage I and II sleep may be considered mildly abnormal secondary to presence of mild generalized slowing. No focal abnormalities, seizure activity, or seizure discharge was otherwise noted. Clinical correlation is recommended. [facility]/MODToya Melvin Larsen MD / [id number] CC: Linda Javier M.D.
--- NOTE | ~2016-08-02 | HP ---
History And Physical [address] [place]. [address] NAME: VANESSA NUÑEZ : 37 STATUS : ADM IN [facility]#: [id number] AGE: 80 ADM/REG DATE : 08/02/16 MR#: [id number] REPORT SERV DATE: 08/02/16 DICTATED BY: SINGH MENEZES DATE: 08/02/16 REPORT STATUS : Draft TRANSCRIBED BY: MODL DATE: 08/02/16 DATE OF ADMISSION: 08/02/2016 CHIEF COMPLAINT: A 80-year-old male presenting with recurrent Bird catheter-associated urinary tract infections. HISTORY OF PRESENTING ILLNESS: The patient's history was obtained through careful interview with the patient and , coupled with review of [facility] and [facility] medical records. The patient has been Bird catheter dependent in 2017 secondary to severe urinary retention and bladder obstruction. Unfortunately, he has had recurrent urinary tract infections over the last few months with MSSA and Klebsiella even leading to sepsis in the past. It is in this context the patient has been rehabilitating at [facility] and just today developed fevers, chills, rigors, and uncontrolled shaking. He had nausea, but no vomiting and then developed increasing abdominal pain mostly in the area of his catheter in his suprapubic region and around his penis, but also going into his bilateral flanks. He describes it as an aching quality pain, 8/10 severity. He has been confused today and lightheaded. He suffers from constipation constantly. No diarrhea. No shortness of breath. No chest pain. No cough. REVIEW OF SYSTEMS: Otherwise, a 14-point review of systems was obtained and was negative. PAST MEDICAL HISTORY: 1. Dementia (possible vascular dementia). 2. Parkinson's disease. 3. Stroke. 4. Urinary tract infection with Klebsiella and MSSA leading to sepsis in the past. 5. Urinary retention with Bird catheter placement, followed by Dr. Sylvester Nevarez. 6. Hypertension. 7. Neuropathy with ataxia. 8. Thyroid nodule. 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 10.No cardiac disease history. PAST SURGICAL HISTORY: 1. Right inguinal hernia repair. 2. Cholecystectomy. 3. Penile implant. History And Physical [address] [address] NAME: VANESSA NUÑEZ : 37 STATUS : ADM IN PAT#: [id number] AGE: 80 ADM/REG DATE : 08/02/16 MR#: [id number] REPORT SERV DATE: 08/02/16 DICTATED BY: SINGH MENEZES DATE: 08/02/16 REPORT STATUS : Draft TRANSCRIBED BY: STELLA DATE: 08/02/16 CODE STATUS: DNR. ALLERGIES: NO KNOWN DRUG ALLERGIES. SOCIAL HISTORY: No tobacco abuse. No alcohol abuse. Resides and is rehabilitating at [facility]. He is . Has two children, who live locally. Three grandchildren. He ambulates with a walker. 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 FAMILY HISTORY: Cancer and diabetes. CURRENT MEDICATIONS: Include Tylenol, duo nebulizers, Uroxatral 10 mg every morning, Xanax 0.5 to 2 mg as needed, Norvasc 2.5 mg p.o. daily, Sinemet one tablet p.o. four times a day, Coreg 3.125 mg p.o. b.i.d., vitamin D, Colace 100 mg p.o. b.i.d., Lovenox 40 mg subcutaneous daily, folic acid, hydrocortisone cream, melatonin 3 mg at bedtime, multivitamin, Macrobid 100 mg p.o. b.i.d., Zofran p.r.n., Exelon patch, Florastor 500 mg p.o. daily, Senokot, Flomax 0.4 mg p.o. q.h.s. PHYSICAL EXAMINATION: VITAL SIGNS: Temperature 97.7, pulse 126, blood pressure 106/55, respiratory rate 24, O2 saturation 100% on room air. GENERAL: An ill-appearing male, in evidence of distress secondary to his illness with uncontrollable rigors. HEENT: Pupils equal, round, and reactive to light. No conjunctival pallor. No scleral icterus. Nares are patent. Oropharynx is clear of obstruction. Dry mucous membranes. NECK: Trachea midline. No thyromegaly. LYMPH: No cervical lymphadenopathy. No supraclavicular lymphadenopathy. No bilateral inguinal lymphadenopathy. RESPIRATORY: The patient has scattered crackles on examination. I believe he has evidence of atelectasis by lung exam with crackles at the base of lungs in particular. No rhonchi, no wheezes, no rales. The patient has a nonlabored respiratory effort. CARDIOVASCULAR: Tachycardic regular rhythm. No murmurs, rubs, or gallops. No extremity edema is appreciated. ABDOMEN: Significant suprapubic abdominal discomfort with guarding, but no rebound. I do not appreciate any flank tenderness at this time though. No hepatosplenomegaly. DERMATOLOGICAL: Warm and dry extremities. No pallor, no cyanosis. PSYCHIATRIC: Normal affect. He is in a discouraged mood. He is alert. He is poorly oriented to time, he is oriented to location though, and also has difficulty with orientation to his recent history. LABORATORY DATA: White blood cell count 26.9, hemoglobin 11, hematocrit 35, platelets 404. Sodium 136, potassium 4.4, chloride 103, bicarb 25, BUN 20, creatinine 0.83, glucose 114, troponin negative. Urinalysis shows greater than 182 red blood cells, greater than 182 white blood cells, and large leukocyte esterase with positive nitrites. STUDIES: 1. Chest x-ray by my own evaluation shows right middle lung disease, atelectasis, but stable compared to 07/21/2016. History And Physical [address] [place]. [address] NAME: VANESSA NUÑEZ : 37 STATUS : ADM IN [facility]#: [id number] AGE: 80 ADM/REG DATE : 08/02/16 MR#: [id number] REPORT SERV DATE: 08/02/16 DICTATED BY: SINGH MENEZES DATE: 08/02/16 REPORT STATUS : Draft TRANSCRIBED BY: STELLA DATE: 08/02/[address] scan of the brain reviewed from 07/21/2016 showed no acute abnormality. ASSESSMENT AND PLAN: 1. Sepsis with tachycardia, tachypnea, rigors, encephalopathy, and white blood cell count of 26.9. Place on IV vancomycin, IV cefepime. Check blood cultures. Check urine cultures. Check lactic acid. 2. Urinary tract infection with indwelling Bird catheter. Consult Dr. Sylvester Nevarez. Check an ultrasound of the kidneys and bladder. Noted hematuria. 3. Parkinson's disease. 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 [facility]/MODL Singh Menezes M.D. / [id number] CC: Linda Matthews M.D. David Winters, D.O. Marty Scheinberg, M.D.
[2016-08-02 19:15] LABS: ASCORBIC ACID (UR NOT ORDER) NEG (NEG); BILIRUBIN, URINE NEGATIVE (NEG); ER URINALYSIS TAT 0 Hrs 10 Mins; KETONE, URINE NEGATIVE (NEG); LEUKOCYTE ESTERASE(NOT OR LARGE (NEG); NITRITE (URINE) POS (NEG); WBC (NOT ORDERED) (RFLEX) > 182 (0-5)
[~2016-08-02 19:19] MED LIST changes: +ACET500CAP PO; +ALBUTEROL; +ATIVAN2 MG PO; +ATV.5 PO; +ATV1 PO; +BROVANA15 MCG INH; +CEFADROXIL1 GM PO; +CEFT5 PO; +DSS PO; +DURICEF PO; +EXELON9.5T TOP; +FLORASTOR250 MG PO; +HYDRALAZINE100 MG PO; +IMDUR30 PO; +LEVAQUIN750 MG PO; +LOTREL1 CA4 PO; +MELA3 PO; +MIRALAX POWDER1 PKT PO; +POLY-IRON 150MG PO; +PRAVACHOL80 MG PO; +PULRESP.5 INH; +SPIRIVA; +ULTRAM50 PO; +VITAMIN D31000 UNIT PO; +VITE PO; +ZETIA PO
[2016-08-02 20:42] LABS: HEMOGLOBIN 11.5 g/dL (13.6-17.8); MEAN CORPUS HGB CONC 32.4 g/dL (32.0-36.0); MEAN CORPUSCULAR HEMOGLOB 26.1 pg (26.0-34.0); MEAN CORPUSCULAR VOLUME 80.5 fL (80-100); MEAN PLATELET VOLUME 9.1 fL (9.2-13.0); PLATELET COUNT 404 10/3/uL (150-400); RBC DISTRIBUTION WIDTH 15.5 % (12.0-16.0); RED CELL COUNT 4.41 10/6/uL (4.7-6.1)
[2016-08-02 20:43] LABS: ER CBC TAT 0 Hrs 07 Mins; HEMATOCRIT 35.5 % (40.0-51.0); WHITE BLOOD CELLS 26.9 10/3/uL (4.5-10.5)
[2016-08-02 20:45] LABS: MANUAL DIFF NO %
[2016-08-02 20:58] LABS: CHEST PAIN PROFILE TAT 0 Hrs 22 Mins; CHLORIDE, SERUM 103 MMOL/L (96-112); CO2 (CARBON DIOXIDE) 25 MMOL/L (24-34); CREATININE 0.83 MG/DL (0.70-1.30); GFR AFRICAN AMERICAN 97 ML/MIN (>=60); GFR NON AFRICAN AMERICAN 84 ML/MIN (>=60); GLUCOSE, SERUM 114 MG/DL (60-99); SODIUM, SERUM 136 MMOL/L (135-148); TROPONIN I <0.02 NG/ML (<0.05)
[2016-08-02 20:59] LABS: BUN (BLOOD UREA NITROGEN) 20 MG/DL (6-23); CALCIUM, SERUM 9.7 MG/DL (8.5-10.4); POTASSIUM, SERUM 4.4 MMOL/L (3.5-5.3)
[2016-08-02 21:02] LABS: BAND NEUTROPHILS 7 %; ER DIFF TAT 0 Hrs 26 Mins; LYMPHOCYTES 4 %; LYMPHOCYTES ABSOLUTE (CALC) 1.08 10/3/uL (0.67-4.30); MONOCYTES 4 %; MONOCYTES ABSOLUTE (CALC) 1.08 10/3/uL (0.21-1.20); NEUTROPHILS ABSOLUTE (CALC) 24.75 10/3/uL (2.02-8.40); PLATELET ESTIMATE ADQ (ADEQUATE); RBC MORPHOLOGY NORM (NORMAL); SEGMENTED NEUTROPHIL (0) 85 %; TOTAL NUCLEATED CELLS 100
[2016-08-02] MEDS ORDERED: LOVENOX40 SC (21:09)
[2016-08-02] MEDS ORDERED: X5 PO (21:09)
[2016-08-02] MEDS ORDERED: XANAX2 MG PO (21:09)
[2016-08-02] MEDS ORDERED: NORV25 PO (21:10)
[2016-08-02] MEDS ORDERED: UROXATRAL PO (21:10)
[2016-08-02] MEDS ORDERED: SINCR25100 PO (21:11)
[2016-08-02] MEDS ORDERED: VITAMIN D31000 UNIT PO (21:12)
[2016-08-02] MEDS ORDERED: COREG3 PO (21:12)
[2016-08-02] MEDS ORDERED: DSS PO (21:13)
[2016-08-02] MEDS ORDERED: MULTIVIT/MIN PO (21:13)
[2016-08-02] MEDS ORDERED: FOLIC PO (21:13)
[2016-08-02] MEDS ORDERED: EXELON9.5T TOP (21:14)
[2016-08-02] MEDS ORDERED: FLOMAX4 PO (21:14)
[2016-08-02] MEDS ORDERED: FLORASTOR250 MG PO (21:14)
[2016-08-02] MEDS ORDERED: T PO (21:15)
[2016-08-02] MEDS ORDERED: ACETSUP650 PR (21:15)
[2016-08-02] MEDS ORDERED: ZOFRAN4 PO (21:16)
[2016-08-02] MEDS ORDERED: MELA3 PO (21:17)
[2016-08-02] MEDS ORDERED: DUONEB INH (21:18)
[2016-08-02] MEDS ORDERED: SENTAB PO (21:18)
[2016-08-02] MEDS ORDERED: HYDROCORTISONE30 G1 TOP (21:19)
[2016-08-02] MEDS ORDERED: MACROBID PO (21:23)
[2016-08-02 21:42] LABS: INTERNATIONAL NORMAL RATI 1.2 UNITS (-); PARTIAL THROMBO TIME 29.3 SEC (22.5-37.2)
[2016-08-02 22:21] LABS: LACTATE 2.8 MMOL/L (0.3-2.4)
[2016-08-02 22:23] LABS: INFLUENZA A SCREEN NEGATIVE (NEGATIVE); INFLUENZA B SCREEN NEGATIVE (NEGATIVE)
[2016-08-03 07:24] LABS: BASOPHILS 0.1 %; BASOPHILS ABSOLUTE 0.03 10/3/uL (0.0-0.16); EOSINOPHILS 0 %; EOSINOPHILS ABSOLUTE 0.01 10/3/uL (0.0-0.53); HEMATOCRIT 32.6 % (40.0-51.0); HEMOGLOBIN 10.3 g/dL (13.6-17.8); IMMATURE GRANULOCYTES 0.4 %; IMMATURE GRANULOCYTES ABSOLUTE 0.08 10/3/uL (0.0-0.11); LYMPHOCYTES ABSOLUTE 1.61 10/3/uL (0.67-4.30); MANUAL DIFF NO %; MEAN CORPUS HGB CONC 31.6 g/dL (32.0-36.0); MEAN CORPUSCULAR HEMOGLOB 25.9 pg (26.0-34.0); MEAN CORPUSCULAR VOLUME 82.1 fL (80-100); MEAN PLATELET VOLUME 8.4 fL (9.2-13.0); MONOCYTES 8.1 %; MONOCYTES ABSOLUTE 1.62 10/3/uL (0.21-1.20); NEUTROPHILS 83.4 %; NEUTROPHILS ABSOLUTE 16.75 10/3/uL (2.02-8.40); PLATELET COUNT 338 10/3/uL (150-400); RBC DISTRIBUTION WIDTH 15.7 % (12.0-16.0); RED CELL COUNT 3.97 10/6/uL (4.7-6.1); WHITE BLOOD CELLS 20.1 10/3/uL (4.5-10.5)
[2016-08-03 07:29] LABS: INTERNATIONAL NORMAL RATI 1.3 UNITS (-); PROTIME (NOT ORD) 15.9 SEC (12.0-14.5)
[2016-08-03 07:30] LABS: PARTIAL THROMBO TIME 33.2 SEC (22.5-37.2)
[2016-08-03 07:46] LABS: A/G RATIO 0.8 (0.7-1.9); ALKALINE PHOSPHATASE 63 U/L (45-117); BUN (BLOOD UREA NITROGEN) 19 MG/DL (6-23); CALCIUM, SERUM 8.4 MG/DL (8.5-10.4); CHLORIDE, SERUM 105 MMOL/L (96-112); CO2 (CARBON DIOXIDE) 23 MMOL/L (24-34); CREATININE 0.69 MG/DL (0.70-1.30); GFR AFRICAN AMERICAN 105 ML/MIN (>=60); GFR NON AFRICAN AMERICAN 90 ML/MIN (>=60); GLOBULIN 3.8 G/DL (2.5-4.1); GLUCOSE, SERUM 99 MG/DL (60-99); SGOT(AST) 19 U/L (5-40); SGPT(ALT) 10 U/L (5-65); SODIUM, SERUM 139 MMOL/L (135-148); TOTAL BILIRUBIN 0.8 MG/DL (0-1.2); TOTAL PROTEIN 6.8 G/DL (6.0-8.5); ULTRASENSITIVE TSH 0.766 MCIU/ML (0.358-3.740)
[2016-08-04 09:09] LABS: HEMATOCRIT 30.4 % (40.0-51.0); HEMOGLOBIN 9.7 g/dL (13.6-17.8); MANUAL DIFF YES %; MEAN CORPUS HGB CONC 31.9 g/dL (32.0-36.0); MEAN CORPUSCULAR HEMOGLOB 26.2 pg (26.0-34.0); MEAN CORPUSCULAR VOLUME 82.2 fL (80-100); MEAN PLATELET VOLUME 8.6 fL (9.2-13.0); PLATELET COUNT 270 10/3/uL (150-400); RBC DISTRIBUTION WIDTH 15.7 % (12.0-16.0); WHITE BLOOD CELLS 8.8 10/3/uL (4.5-10.5)
[2016-08-04 09:28] LABS: LYMPHOCYTES 24 %; LYMPHOCYTES ABSOLUTE (CALC) 2.11 10/3/uL (0.67-4.30); MONOCYTES 14 %; MONOCYTES ABSOLUTE (CALC) 1.23 10/3/uL (0.21-1.20); NEUTROPHILS ABSOLUTE (CALC) 5.46 10/3/uL (2.02-8.40); PLATELET ESTIMATE ADQ (ADEQUATE); SEGMENTED NEUTROPHIL (0) 62 %; TOTAL NUCLEATED CELLS 100
[2016-08-04 09:29] LABS: RBC MORPHOLOGY NORM (NORMAL)
[2016-08-05 08:27] LABS: CHLORIDE, SERUM 105 MMOL/L (96-112); CO2 (CARBON DIOXIDE) 26 MMOL/L (24-34); GFR AFRICAN AMERICAN 111 ML/MIN (>=60); GFR NON AFRICAN AMERICAN 96 ML/MIN (>=60); GLUCOSE, SERUM 97 MG/DL (60-99); POTASSIUM, SERUM 3.8 MMOL/L (3.5-5.3); SODIUM, SERUM 139 MMOL/L (135-148)
[2016-08-05 08:28] LABS: BUN (BLOOD UREA NITROGEN) 11 MG/DL (6-23); CALCIUM, SERUM 9.4 MG/DL (8.5-10.4)
[2016-08-07 06:08] LABS: BASOPHILS 0.3 %; BASOPHILS ABSOLUTE 0.03 10/3/uL (0.0-0.16); EOSINOPHILS 0.1 %; EOSINOPHILS ABSOLUTE 0.01 10/3/uL (0.0-0.53); HEMATOCRIT 29.5 % (40.0-51.0); HEMOGLOBIN 9.7 g/dL (13.6-17.8); IMMATURE GRANULOCYTES 0.7 %; IMMATURE GRANULOCYTES ABSOLUTE 0.06 10/3/uL (0.0-0.11); LYMPHOCYTES ABSOLUTE 2.91 10/3/uL (0.67-4.30); MEAN CORPUS HGB CONC 32.9 g/dL (32.0-36.0); MEAN PLATELET VOLUME 8.4 fL (9.2-13.0); MONOCYTES 11.4 %; MONOCYTES ABSOLUTE 1.01 10/3/uL (0.21-1.20); NEUTROPHILS 54.5 %; NEUTROPHILS ABSOLUTE 4.81 10/3/uL (2.02-8.40); PLATELET COUNT 327 10/3/uL (150-400); RBC DISTRIBUTION WIDTH 14.9 % (12.0-16.0); RED CELL COUNT 3.73 10/6/uL (4.7-6.1); WHITE BLOOD CELLS 8.8 10/3/uL (4.5-10.5)
[2016-08-07 06:10] LABS: MANUAL DIFF NO %; MEAN CORPUSCULAR VOLUME 79.1 fL (80-100)
[2016-08-07 06:19] LABS: BUN (BLOOD UREA NITROGEN) 10 MG/DL (6-23); CALCIUM, SERUM 8.9 MG/DL (8.5-10.4); CHLORIDE, SERUM 108 MMOL/L (96-112); CO2 (CARBON DIOXIDE) 24 MMOL/L (24-34); GFR AFRICAN AMERICAN 104 ML/MIN (>=60); GFR NON AFRICAN AMERICAN 90 ML/MIN (>=60); GLUCOSE, SERUM 90 MG/DL (60-99); POTASSIUM, SERUM 3.5 MMOL/L (3.5-5.3); SODIUM, SERUM 140 MMOL/L (135-148)
[2016-08-08 14:58] LABS: ALLENS TEST Pos; CARBOXYHEMOGLOBIN 0.7 % (0-3); HEMOBLOGIN CONTENT 11.1 G/DL (14-18); INSTRUMENT SERIAL # 8083; METHEMOGLOBIN 0.3 % (0-3); O2 CONTENT 14.6 VOL% (18-24); PCO2 (CO2 TENSION) 33 MMHG (35-45); PO2 (O2 TENSION) 68 MMHG (79-93); SAMPLE Arterial; pH 7.48 (7.37-7.43)
[2016-08-08 15:35] LABS: BASOPHILS 0.5 %; BASOPHILS ABSOLUTE 0.04 10/3/uL (0.0-0.16); EOSINOPHILS 0.3 %; EOSINOPHILS ABSOLUTE 0.02 10/3/uL (0.0-0.53); HEMATOCRIT 31.9 % (40.0-51.0); HEMOGLOBIN 10.5 g/dL (13.6-17.8); IMMATURE GRANULOCYTES 1.2 %; IMMATURE GRANULOCYTES ABSOLUTE 0.09 10/3/uL (0.0-0.11); LYMPHOCYTES 34.5 %; LYMPHOCYTES ABSOLUTE 2.64 10/3/uL (0.67-4.30); MEAN CORPUS HGB CONC 32.9 g/dL (32.0-36.0); MEAN CORPUSCULAR HEMOGLOB 26.4 pg (26.0-34.0); MEAN CORPUSCULAR VOLUME 80.4 fL (80-100); MEAN PLATELET VOLUME 8.3 fL (9.2-13.0); MONOCYTES 8.2 %; MONOCYTES ABSOLUTE 0.63 10/3/uL (0.21-1.20); NEUTROPHILS 55.3 %; NEUTROPHILS ABSOLUTE 4.24 10/3/uL (2.02-8.40); PLATELET COUNT 303 10/3/uL (150-400); RED CELL COUNT 3.97 10/6/uL (4.7-6.1); WHITE BLOOD CELLS 7.7 10/3/uL (4.5-10.5)
[2016-08-08 15:36] LABS: MANUAL DIFF NO %
[2016-08-08 15:49] LABS: BUN (BLOOD UREA NITROGEN) 10 MG/DL (6-23); CALCIUM, SERUM 9.1 MG/DL (8.5-10.4); CHLORIDE, SERUM 107 MMOL/L (96-112); CO2 (CARBON DIOXIDE) 25 MMOL/L (24-34); CREATININE 0.64 MG/DL (0.70-1.30); GFR AFRICAN AMERICAN 108 ML/MIN (>=60); GFR NON AFRICAN AMERICAN 93 ML/MIN (>=60); GLUCOSE, SERUM 106 MG/DL (60-99); SODIUM, SERUM 140 MMOL/L (135-148)
[2016-08-10 07:56] LABS: CHOL/HDL RATIO(NOT ORDER) 4.3 (0-5); FOLATE 23.7 NG/ML (>5.2)
[2016-08-11 06:37] LABS: BASOPHILS 0.6 %; BASOPHILS ABSOLUTE 0.06 10/3/uL (0.0-0.16); EOSINOPHILS 0.5 %; EOSINOPHILS ABSOLUTE 0.05 10/3/uL (0.0-0.53); HEMATOCRIT 31.9 % (40.0-51.0); HEMOGLOBIN 10.3 g/dL (13.6-17.8); IMMATURE GRANULOCYTES 0.9 %; LYMPHOCYTES 32.8 %; LYMPHOCYTES ABSOLUTE 3.45 10/3/uL (0.67-4.30); MEAN CORPUS HGB CONC 32.3 g/dL (32.0-36.0); MEAN CORPUSCULAR HEMOGLOB 26.3 pg (26.0-34.0); MEAN CORPUSCULAR VOLUME 81.4 fL (80-100); MEAN PLATELET VOLUME 8.5 fL (9.2-13.0); MONOCYTES ABSOLUTE 0.95 10/3/uL (0.21-1.20); NEUTROPHILS 56.2 %; NEUTROPHILS ABSOLUTE 5.92 10/3/uL (2.02-8.40); PLATELET COUNT 367 10/3/uL (150-400); RBC DISTRIBUTION WIDTH 15.7 % (12.0-16.0); RED CELL COUNT 3.92 10/6/uL (4.7-6.1); WHITE BLOOD CELLS 10.5 10/3/uL (4.5-10.5)
[2016-08-11 06:42] LABS: MANUAL DIFF NO %
[2016-08-11 06:50] LABS: CALCIUM, SERUM 9.4 MG/DL (8.5-10.4); CHLORIDE, SERUM 108 MMOL/L (96-112); CO2 (CARBON DIOXIDE) 27 MMOL/L (24-34); CREATININE 0.74 MG/DL (0.70-1.30); GFR AFRICAN AMERICAN 102 ML/MIN (>=60); GFR NON AFRICAN AMERICAN 88 ML/MIN (>=60); GLUCOSE, SERUM 96 MG/DL (60-99); POTASSIUM, SERUM 3.7 MMOL/L (3.5-5.3); SODIUM, SERUM 143 MMOL/L (135-148)
[2016-08-11 06:52] LABS: BUN (BLOOD UREA NITROGEN) 18 MG/DL (6-23)
[2016-08-14] MEDS ORDERED: LOVENOX40 SC (15:59)
[2016-08-14] MEDS ORDERED: XANAX1 MG PO ×2 (16:00→16:05)
[2016-08-14] MEDS ORDERED: UROXATRAL PO (16:00)
[2016-08-14] MEDS ORDERED: NORV5 PO (16:00)
[2016-08-14] MEDS ORDERED: EXELON9.5T TOP (16:01)
[2016-08-14] MEDS ORDERED: FLORASTOR250 MG PO (16:01)
[2016-08-14] MEDS ORDERED: ASAB PO (16:01)
[2016-08-14] MEDS ORDERED: FLOMAX4 PO (16:02)
[2016-08-14] MEDS ORDERED: MULTIVIT/MIN PO (16:02)
[2016-08-14] MEDS ORDERED: COREG6 PO (16:02)
[2016-08-14] MEDS ORDERED: VITAMIN B-122500 MCG PO (16:02)
[2016-08-14] MEDS ORDERED: FOLIC PO (16:03)
[2016-08-14] MEDS ORDERED: DSS PO (16:03)
[2016-08-14] MEDS ORDERED: VITAMIN D31000 UNIT PO (16:03)
[2016-08-14] MEDS ORDERED: SINCR25100 PO (16:03)
[2016-08-14] MEDS ORDERED: LIPITOR20 PO (16:04)
[2016-08-14] MEDS ORDERED: CEFAZ1 IV (16:04)
[2016-08-14] MEDS ORDERED: ACETSUP650 PR (16:05)
[2016-08-14] MEDS ORDERED: T PO (16:05)
[2016-08-14] MEDS ORDERED: MELA3 PO (16:06)
[2016-08-14] MEDS ORDERED: ZOFRAN4 PO (16:06)
[2016-08-14] MEDS ORDERED: SENTAB PO (16:07)
[2016-08-14] MEDS ORDERED: HYDROCORTISONE30 G1 TOP (16:07)
[2016-08-14] MEDS ORDERED: DUONEB INH (16:07)
[2016-12-29] MEDS ORDERED: SEROQUEL300 MG PO (09:54)
[2016-12-29] MEDS ORDERED: EXELON9.5T TOP (09:57)
[2016-12-29] MEDS ORDERED: FERROUS SULF325 M1 PO (10:01)
[2016-12-29] MEDS ORDERED: COZ25 PO (10:01)
[2016-12-29] MEDS ORDERED: FLORASTOR250 MG PO (10:02)
[2016-12-29] MEDS ORDERED: MIRALAX POWDER1 PKT PO (10:03)
[2016-12-29] MEDS ORDERED: XANAX XR0.5 MG PO (10:04)
== END 2016-08-12 18:14 | DRG 698 ==
LOC: ER 19:19 → 4SO 21:22
PROVIDERS: Emergency Medicine; Hospitalist; Internal Medicine; Nurse Practitioner; Student in an Organized Health Care Education/Training Program
PROC: 02HV33Z Insertion of Infusion Device into Superior Vena Cava, Percutaneous Approach (ICD-10-PCS; principal; 2016-08-06)
PROC: 4A02X4A Measurement of Cardiac Electrical Activity, Guidance, External Approach (ICD-10-PCS; principal; 2016-08-06)
DX: T83.511A Infection and inflammatory reaction due to indwelling urethral catheter, initial encounter (principal); A41.01 Sepsis due to Methicillin susceptible Staphylococcus aureus; G93.41 Metabolic encephalopathy; R65.20 Severe sepsis without septic shock; N39.0 Urinary tract infection, site not specified; Y84.6 Urinary catheterization as the cause of abnormal reaction of the patient, or of later complication, without mention of misadventure at the time of the procedure; G20 Parkinson's disease; G62.9 Polyneuropathy, unspecified; F02.80 Dementia in other diseases classified elsewhere, unspecified severity, without behavioral disturbance, psychotic disturbance, mood disturbance, and anxiety; I10 Essential (primary) hypertension; R33.9 Retention of urine, unspecified; N52.9 Male erectile dysfunction, unspecified; Z66 Do not resuscitate; E53.8 Deficiency of other specified B group vitamins; E55.9 Vitamin D deficiency, unspecified; I69.30 Unspecified sequelae of cerebral infarction; Z79.899 Other long term (current) drug therapy; Z98.890 Other specified postprocedural states; Z91.81 History of falling; R33.8 Other retention of urine; K59.00 Constipation, unspecified; I69.319 Unspecified symptoms and signs involving cognitive functions following cerebral infarction; F01.50 Vascular dementia, unspecified severity, without behavioral disturbance, psychotic disturbance, mood disturbance, and anxiety; Z86.73 Personal history of transient ischemic attack (TIA), and cerebral infarction without residual deficits; F41.9 Anxiety disorder, unspecified
CPT/HCPCS: 36569; 36600; 70450; 70460; 70544; 70551; 71010; 74230; 76705; 76775; 80048; 80053; 80061; 81001; 82140; 82306; 82533; 82607; 82746; 82805; 82962; 83036; 83605; 83735; 84443; 84484; 85025; 85610; 85730; 87040; 87077; 87086; 87150; 87186; 87804; 92610-GN; 92611-GN; 93308; 95819; 97110-GO; 97110-GP; 97162-GP; 97166-GO; 97530-GP; 97535-GO; 99284; 99285; A9270-GY; C1751; G8978-CK-GP; G8979-CK-GP; G8987-CK-GO; G8988-CJ-GO; G8996-CL-GN; G8996-CN-GN; G8997-CL-GN; G8997-CN-GN; G8998-CL-GN; G8998-CN-GN; J0360; J0690; J0692; J3370; J3486

== ENCOUNTER 2016-08-14 17:03 | Emergency (ER) | payer MEDICARE, BC ==
[2016-08-14 15:21] LABS: ALLENS TEST Pos; BE (BASE EXCESS) 0.8 MEQ/L (0 +/- 2.5); CARBOXYHEMOGLOBIN 1.1 % (0-3); HCO3 (ACTUAL BICARBONATE) 24.1 MEQ/L (23-27); HEMOBLOGIN CONTENT 10.6 G/DL (14-18); INSTRUMENT SERIAL # 8087; METHEMOGLOBIN 0.2 % (0-3); O2 CONTENT 14.5 VOL% (18-24); PCO2 (CO2 TENSION) 34 MMHG (35-45); PO2 (O2 TENSION) 95 MMHG (79-93); SAMPLE Arterial; pH 7.47 (7.37-7.43)
[2016-08-14 15:45] LABS: BASOPHILS 0.2 %; BASOPHILS ABSOLUTE 0.02 10/3/uL (0.0-0.16); EOSINOPHILS 1.4 %; EOSINOPHILS ABSOLUTE 0.16 10/3/uL (0.0-0.53); ER CBC TAT 0 Hrs 10 Mins; HEMOGLOBIN 9.9 g/dL (13.6-17.8); IMMATURE GRANULOCYTES 0.4 %; IMMATURE GRANULOCYTES ABSOLUTE 0.04 10/3/uL (0.0-0.11); LYMPHOCYTES 21.6 %; LYMPHOCYTES ABSOLUTE 2.42 10/3/uL (0.67-4.30); MEAN CORPUSCULAR HEMOGLOB 26.5 pg (26.0-34.0); MEAN CORPUSCULAR VOLUME 80.4 fL (80-100); MEAN PLATELET VOLUME 8.6 fL (9.2-13.0); MONOCYTES 8.1 %; MONOCYTES ABSOLUTE 0.91 10/3/uL (0.21-1.20); NEUTROPHILS 68.3 %; NEUTROPHILS ABSOLUTE 7.66 10/3/uL (2.02-8.40); PLATELET COUNT 324 10/3/uL (150-400); RBC DISTRIBUTION WIDTH 15.4 % (12.0-16.0); RED CELL COUNT 3.73 10/6/uL (4.7-6.1); WHITE BLOOD CELLS 11.2 10/3/uL (4.5-10.5)
[2016-08-14 15:46] LABS: MANUAL DIFF NO %
[2016-08-14 16:00] LABS: A/G RATIO 0.7 (0.7-1.9); ALBUMIN 2.9 G/DL (3.5-5.0); ALKALINE PHOSPHATASE 60 U/L (45-117); BUN (BLOOD UREA NITROGEN) 13 MG/DL (6-23); CALCIUM, SERUM 8.9 MG/DL (8.5-10.4); CHLORIDE, SERUM 104 MMOL/L (96-112); CO2 (CARBON DIOXIDE) 30 MMOL/L (24-34); CREATININE 0.61 MG/DL (0.70-1.30); GFR AFRICAN AMERICAN 110 ML/MIN (>=60); GFR NON AFRICAN AMERICAN 95 ML/MIN (>=60); GLOBULIN 4.1 G/DL (2.5-4.1); GLUCOSE, SERUM 120 MG/DL (60-99); POTASSIUM, SERUM 3.7 MMOL/L (3.5-5.3); SGOT(AST) 9 U/L (5-40); SGPT(ALT) 6 U/L (5-65); SODIUM, SERUM 136 MMOL/L (135-148); TOTAL BILIRUBIN 0.5 MG/DL (0-1.2); TROPONIN I <0.02 NG/ML (<0.05)
[2016-08-14 16:59] LABS: ASCORBIC ACID (UR NOT ORDER) NEG (NEG); BILIRUBIN, URINE NEGATIVE (NEG); ER URINALYSIS TAT 0 Hrs 12 Mins; KETONE, URINE NEGATIVE (NEG); LEUKOCYTE ESTERASE(NOT OR SMALL (NEG); NITRITE (URINE) NEG (NEG); WBC (NOT ORDERED) (RFLEX) 11 (0-5)
[~2016-08-14 17:03] MED LIST changes: +ACETSUP650 PR; +ASAB PO; +CEFAZ1 IV; +DUONEB INH; +FOLIC PO; +HYDROCORTISONE30 G1 TOP; +LIPITOR20 PO; +LOVENOX40 SC; +MACROBID PO; +MULTIVIT/MIN PO; +NORV25 PO; +NORV5 PO; +SENTAB PO; +SINCR25100 PO; +T PO; +VITAMIN B-122500 MCG PO; +X5 PO; +XANAX1 MG PO; +XANAX2 MG PO; +ZOFRAN4 PO
[2016-12-29] MEDS ORDERED: SEROQUEL300 MG PO (09:54)
[2016-12-29] MEDS ORDERED: EXELON9.5T TOP (09:57)
[2016-12-29] MEDS ORDERED: COZ25 PO (10:01)
[2016-12-29] MEDS ORDERED: FERROUS SULF325 M1 PO (10:01)
[2016-12-29] MEDS ORDERED: FLORASTOR250 MG PO (10:02)
[2016-12-29] MEDS ORDERED: MIRALAX POWDER1 PKT PO (10:03)
[2016-12-29] MEDS ORDERED: XANAX XR0.5 MG PO (10:04)
== END 2016-08-14 17:46 | disposition home or self-care (01) ==
LOC: ER 17:03
PROVIDERS: Emergency Medicine
DX: F03.90 Unspecified dementia, unspecified severity, without behavioral disturbance, psychotic disturbance, mood disturbance, and anxiety (principal); I10 Essential (primary) hypertension; G20 Parkinson's disease; Z86.73 Personal history of transient ischemic attack (TIA), and cerebral infarction without residual deficits; Z90.49 Acquired absence of other specified parts of digestive tract; Z79.82 Long term (current) use of aspirin; Z79.899 Other long term (current) drug therapy
CPT/HCPCS: 36600; 70450; 71010; 80053; 81001; 82805; 82962; 83605; 83880; 84484; 85025; 87040; 87086; 93005; 99285